=== PATIENT | male | born 1960 | race Caucasian/White ===

== ENCOUNTER 2016-12-11 18:27 | Emergency (ER) | payer OTHER ==
[~2016-12-11] VITALS: Ht 175.3 cm; Wt 110.0 kg
[2016-12-12 08:00] VITALS: BP 151/106
== END 2016-12-12 08:30 | disposition home or self-care (01) ==
LOC: ER 18:28
DX: G31.2 Degeneration of nervous system due to alcohol (principal); I10 Essential (primary) hypertension
CPT/HCPCS: 36415; 99283; G0482

== ENCOUNTER 2017-02-05 19:52 | Emergency (ER) | payer OTHER ==
[~2017-02-05] VITALS: Ht 177.8 cm; Wt 136.0 kg
[~2017-02-05 19:52] MED LIST: ETOMIDATE 2MG/ML 10ML VIAL IV ONE; STERILE WATER FOR INJECTION 10ML VIAL ONE; VECURONIUM BROMIDE 10 MG/VIAL IV ONE
[2017-02-05] MEDS ORDERED: OMEP20TA80 PO (20:02)
[2017-02-05] MEDS ORDERED: TAMS0.4C31 PO (20:02)
[2017-02-05] MEDS ORDERED: LISI10TA5 PO (20:02)
[2017-02-05] MEDS ORDERED: WARF5TAB73 PO (20:04)
[2017-02-05] MEDS ORDERED: AMLO10TA80 PO (20:04)
[2017-02-05] MEDS ORDERED: ATOR40TA70 PO (20:04)
[2017-02-05 22:04] LABS: BASOPHILS % 0.3 % (0.0-2.0); EOSINOPHILS % 2.2 % (0.0-5.0); HEMATOCRIT. 38.5 % (42.0-52.0); HEMOGLOBIN. 12.5 g/dL (14.0-18.0); LYMPHOCYTES % 16.9 % (20.0-50.0); MEAN CORPUSCULAR HEMOGLOBIN 28.9 pg (28.0-32.0); MEAN CORPUSCULAR VOLUME 88.6 fL (80.0-94.0); MEAN PLATELET VOLUME 6.2 fl (7.4-10.4); MONOCYTES % 5.1 % (2.0-8.0); NEUTROPHILS % 75.5 % (40.0-76.0); PLATELET 297 x1000/uL (130-400); RED BLOOD CELL COUNT 4.34 mill/uL (4.7-6.1); RED CELL DISTRIBUTION WIDTH 13.7 % (11.6-14.6)
[2017-02-05 22:08] LABS: CHLORIDE 109 mEq/L (98-107)
[2017-02-05 22:16] LABS: CARBON DIOXIDE 21 mEq/L (21-32)
[2017-02-05 22:18] LABS: TROPONIN I < 0.02 ng/mL (0.00-0.04)
[2017-02-05 22:34] LABS: PARTIAL THROMBOPLASTIN TIME 43.3 sec (24.0-34.0); PROTHROMBIN TIME 63.8 sec
[2017-02-05] MEDS ORDERED: FUROSEMIDE 40MG/4ML VIAL IVP ONE (22:45)
[2017-02-05 22:50] LABS: INR 6.1
[2017-02-05] MEDS ORDERED: PHYTONADIONE 10MG/ML AMP IV ONE (23:00)
[2017-02-05 23:17] LABS: BG BASE EXCESS -3.4 mmol/L (-2.0-2.0); BG DEOXYHEMOGLOBIN 4.3 % (0.0-5.0); BG FRACTION INSPIRED OXYGEN 28; BG HCO3 ACT 21.8 mmol/L (22.0-26.0); BG METHEMOGLOBIN 0.4 % (0.0-1.5); BG OXYGEN SATURATION 95.7 % (92.0-98.5); BG OXYHEMOGLOBIN 95.3 % (94.0-97.0); BG PCO2 39.5 mmHg (35.0-45.0); BG PH 7.359 (7.350-7.450); BG PO2 86.8 mmHg (75.0-100.0); BG SAMPLE SITE RIGHT RADIAL; BG TOTAL HEMOGLOBIN 13.2 g/dL (12.0-18.0); BG VENT MODE NASAL CANNULA
[2017-02-05] MEDS ORDERED: LEVETIRACETAM 500MG PREMIX 100 ML IV ONE (23:30)
[2017-02-05] MEDS ORDERED: VECURONIUM BROMIDE 10 MG/VIAL IV ONE (23:45)
[2017-02-05] MEDS ORDERED: ETOMIDATE 2MG/ML 10ML VIAL IV ONE (23:45)
[2017-02-05] MEDS ORDERED: PROPOFOL 10MG/ML 100ML 100 ML IV ONE (23:45)
[2017-02-06] MEDS ORDERED: COAGULATION FACTOR VIIA RECOMB 1MG VIAL IV NR (01:00)
[2017-02-06 03:58] LABS: BG BASE EXCESS -5.3 mmol/L (-2.0-2.0); BG CARBOXYHEMOGLOBIN 0.3 % (0.5-1.5); BG DEOXYHEMOGLOBIN 19.7 % (0.0-5.0); BG FRACTION INSPIRED OXYGEN 35; BG HCO3 ACT 20.2 mmol/L (22.0-26.0); BG METHEMOGLOBIN 0.1 % (0.0-1.5); BG OXYGEN SATURATION 80.2 % (92.0-98.5); BG OXYHEMOGLOBIN 79.9 % (94.0-97.0); BG PCO2 39.5 mmHg (35.0-45.0); BG PH 7.327 (7.350-7.450); BG SAMPLE SITE RIGHT RADIAL; BG TIDAL VOLUME(mL) 600 mL; BG TOTAL HEMOGLOBIN 13.1 g/dL (12.0-18.0); BG VENT MODE VENT - A/C; BG VENT RATE 14 set
[2017-02-06 04:00] VITALS: BP 131/77
== END 2017-02-06 04:30 | disposition short-term general hospital (02) ==
LOC: ER 20:09
DX: D68.9 Coagulation defect, unspecified (principal); F10.129 Alcohol abuse with intoxication, unspecified; I62.00 Nontraumatic subdural hemorrhage, unspecified; I10 Essential (primary) hypertension; E78.00 Pure hypercholesterolemia, unspecified; Z79.01 Long term (current) use of anticoagulants; R51 Headache
CPT/HCPCS: 31500; 36415; 36600; 43753; 51702; 70450; 71010; 72125; 80053; 82375; 82805; 83880; 84484; 85025; 85610; 85730; 86850; 86900; 86901; 86927; 93005; 96365; 96375; 99291; A4216; G0482; J1940; J1953; J2704; J3430; J3490; J7050; J7189; P9017; Z7610; 94002; A4315